=== PATIENT | male | born 1995 | race Caucasian/White ===

== ENCOUNTER 2018-03-19 11:42 | Emergency (ER) | payer BC ==
--- NOTE | 2018-03-19 12:33 | EDM.PDOC ---
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, working the next 2d left ankle Pain Score (Numeric/FACES): 7 - Related Data Allergies Allergy/AdvReac Type Severity Reaction Status Date / Time No Known Allergies Allergy Verified 03/19/18 12:08 Home Meds: Home Meds NK [No Known Home Meds] 03/19/18 [History] Past Medical History Gastrointestinal History: Reports: Other (See Below) Other Gastrointestinal History: hirschsprungs disease Musculoskeletal History: Reports: Amputation Other Musculoskeletal History: right foot toes from [employer] - Past Surgical History GI Surgical History: Reports: Colon, Colostomy Social & Family History - Tobacco Use Smoking Status *Q: Current Every Day Smoker Years of Tobacco use: 15 Packs/Tins Daily: 1 - Alcohol Use Days Per Week of Alcohol Use: 7 Number of Drinks Per Day: 6 Total Drinks Per Week: 42 - Recreational Drug Use Recreational Drug Use: No Review of Systems - Review of Systems Review Of Systems: See Below Constitutional: Reports: No Symptoms Eyes: Reports: No Symptoms Ears: Reports: No Symptoms Nose: Reports: No Symptoms Mouth/Throat: Reports: No Symptoms Respiratory: Reports: No Symptoms Cardiovascular: Reports: No Symptoms GI/Abdominal: Reports: No Symptoms Genitourinary: Reports: No Symptoms Musculoskeletal: Reports: Joint Pain Skin: Reports: No Symptoms Neurological: Reports: No Symptoms Psychiatric: Reports: No Symptoms ED EXAM, GENERAL - Physical Exam Exam: See Below Exam Limited By: No Limitations General Appearance: Alert, WD/WN, No Apparent Distress Extremities: Other (L ankle, slight swell med/lat/ant along joint line c/w twist rather than a fall, no ecchymosis, mild tender not localized, no bony tender) Course - Vital Signs Last Recorded V/S: Last Vital Signs Temp Pulse 90 03/19/18 11:45 Resp 18 03/19/18 11:45 BP 115/73 09/27/18 11:45 Pulse Ox 99 03/19/18 11:45 - Orders/Labs/Meds Orders: Active Orders 24 hr Category Date Time Status Ankle Min 3V Lt [CR] Stat Exams 03/19/18 11:57 Taken Departure - Departure Time of Disposition: 12:27 Disposition: Home, Self-Care 01 Condition: Good Clinical Impression: Grade 1 ankle sprain Qualifiers: Encounter type: initial encounter Laterality: left Qualified Code(s): S93.402A - Sprain of unspecified ligament of left ankle, initial encounter - Discharge Information *PRESCRIPTION DRUG MONITORING PROGRAM REVIEWED*: Not Applicable *COPY OF PRESCRIPTION DRUG MONITORING REPORT IN PATIENT HELENA: Not Applicable Instructions: Ankle Sprain With Phase I Rehab-SportsMed, How to Use a Stirrup Ankle Brace Referrals: Washington Cabezas MD [Primary Care Provider] - Additional Instructions: Use Ronen wrap and stirrup ankle brace when out of bed for the next 2 weeks. For pain and inflammation and swelling and healing, take ibuprofen 200 mg 3 tabs and acetaminophen 500 mg 2 tabs 4 times a day for 1 week, longer if needed. For pain and swelling, use ice for 10-15 minutes 4 times a day for 2 days. See your physician in 4-5 days. - My Orders Last 24 Hours: My Active Orders 03/19/18 11:57 Ankle Min 3V Lt [CR] Stat - Assessment/Plan Last 24 Hours: My Active Orders 03/19/18 11:57 Ankle Min 3V Lt [CR] Stat
--- NOTE | 2018-03-19 12:46 | CR ---
INDICATION: Injury, pain with weightbearing. LEFT ANKLE: Three views of the left ankle revealed mild soft tissue swelling overlying the lateral malleolus. The ankle mortise appears to be intact without evidence of a fracture, dislocation, or other significant bone or joint abnormality. MTDD
== END 2018-03-19 12:43 | disposition home or self-care (01) ==
LOC: FB.ED 11:42
DX: S93.402A Sprain of unspecified ligament of left ankle, initial encounter (principal); F17.210 Nicotine dependence, cigarettes, uncomplicated; X58.XXXA Exposure to other specified factors, initial encounter
CPT/HCPCS: 73610-LT; 99283

== ENCOUNTER 2018-08-01 02:02 | Emergency (ER) | payer SELFPAY ==
[2018-08-01] MEDS ORDERED: Magnesium Citrate Solution 296 ML Bottle PO ONE (02:27)
[2018-08-01] MEDS ORDERED: Bisacodyl 10 MG Supp RECTAL ONE (02:27)
--- NOTE | 2018-08-01 02:30 | EDM.PDOC ---
ED HPI GENERAL MEDICAL PROBLEM - General Chief Complaint: Gastrointestinal Problem Stated Complaint: STOMACH CRAMPS Time Seen by Provider: 08/01/18 02:05 Source of Information: Reports: Patient, Family History Limitations: Reports: No Limitations - History of Present Illness Onset Date: 07/18/18 Onset Time: 08:00 Duration: Week(s):, Getting Worse Location: Reports: Abdomen Quality: Reports: Dull, Pressure, Same as Previous Episode Severity: Moderate Improves with: Reports: Rest Worsens with: Reports: Movement Associated Symptoms: Reports: No Other Symptoms - Related Data Allergies Allergy/AdvReac Type Severity Reaction Status Date / Time ondansetron [From Zofran] Allergy Burning Verified 08/01/18 02:12 Home Meds: Home Meds NK [No Known Home Meds] 03/19/18 [History] Past Medical History - Past Health History Medical/Surgical History: Denies Medical/Surgical History Gastrointestinal History: Reports: Other (See Below) Other Gastrointestinal History: hirschsprungs disease Musculoskeletal History: Reports: Amputation, Fracture Other Musculoskeletal History: 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, 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 Neurological History: Reports: Concussion, Migraines, Seizure Psychiatric History: Reports: Other (See Below) Other Psychiatric History: multiple personality disorder - Past Surgical History GI Surgical History: Reports: Colon, Colostomy Other GI Surgeries/Procedures: had temp colostomy & has had it reversed Musculoskeletal Surgical History: Reports: Other (See Below) Other Musculoskeletal Surgeries/Procedures:: R hand Social & Family History - Family History Family Medical History: Noncontributory - Tobacco Use Smoking Status *Q: Current Every Day Smoker Years of Tobacco use: 4 Packs/Tins Daily: 0.5 Used Tobacco, but Quit: No Second Hand Smoke Exposure: Yes - Caffeine Use Caffeine Use: Reports: Energy Drinks - Alcohol Use Days Per Week of Alcohol Use: 4 Number of Drinks Per Day: 2 Total Drinks Per Week: 8 - Recreational Drug Use Recreational Drug Use: No ED ROS GENERAL - Review of Systems Review Of Systems: See Below Constitutional: Reports: No Symptoms HEENT: Reports: No Symptoms Respiratory: Reports: No Symptoms Cardiovascular: Reports: No Symptoms Endocrine: Reports: No Symptoms GI/Abdominal: Reports: Abdominal Pain : Reports: No Symptoms Musculoskeletal: Reports: No Symptoms Skin: Reports: No Symptoms Neurological: Reports: No Symptoms Psychiatric: Reports: No Symptoms Hematologic/Lymphatic: Reports: No Symptoms Immunologic: Reports: No Symptoms ED EXAM, GI/ABD - Physical Exam Exam: See Below Exam Limited By: No Limitations General Appearance: Alert, WD/WN, Mild Distress Eyes: Bilateral: Normal Appearance Ears: Normal External Exam Nose: Normal Inspection, Normal Mucosa, No Blood Throat/Mouth: Normal Inspection, Normal Lips, Normal Voice, No Airway Compromise Head: Atraumatic, Normocephalic Neck: Normal Inspection, Supple, Non-Tender, Full Range of Motion Respiratory/Chest: No Respiratory Distress, Lungs Clear, Normal Breath Sounds, No Accessory Muscle Use, Chest Non-Tender Cardiovascular: Normal Peripheral Pulses, Regular Rate, Rhythm, No Edema, No Gallop, No Murmur, No Rub GI/Abdominal Exam: Pelvis Stable, Distended, Tender, Abnormal Bowel Sounds, Other (H/O Hirschsprung disease) (Male) Exam: No Hernia Rectal (Males) Exam: Deferred Back Exam: Normal Inspection, Full Range of Motion Extremities: Normal Inspection, Normal Range of Motion, Non-Tender, No Pedal Edema Neurological: Alert, Oriented, CN II-XII Intact, Normal Cognition, Normal Gait Psychiatric: Normal Affect, Normal Mood Skin Exam: Warm, Dry, Intact, Normal Color, No Rash Lymphatic: No Adenopathy Course - Vital Signs Text/Narrative:: Impression: H/O Hirschsprung disease, Constipation Last Recorded V/S: Last Vital Signs Temp 36.3 C 08/01/18 02:05 Pulse 105 H 08/01/18 02:05 Resp 18 08/01/18 02:05 BP 126/97 H 08/01/18 02:05 Pulse Ox 100 08/01/18 02:05 - Orders/Labs/Meds Orders: Active Orders 24 hr Category Date Time Status Abdomen 2V AP Flat Upright [CR] Stat Exams 08/01/18 02:23 Taken Labs: Laboratory Tests 08/01/18 08/01/18 08/01/18 Range/Units 02:40 02:40 02:59 WBC 10.2 (4.5-12.0) X10-3/uL RBC 4.83 (4.30-5.75) x10(6)uL Hgb 15.2 (11.5-15.5) g/dL Hct 45.8 (30.0-51.3) % MCV 95.0 (80-96) fL MCH 31.5 (27.7-33.6) pg MCHC 33.1 (32.2-35.4) g/dL RDW 11.8 (11.5-15.5) % Plt Count 325 (125-369) X10(3)uL MPV 8.4 (7.4-10.4) fL Neut % (Auto) 65.8 (46-82) % Lymph % (Auto) 24.4 (13-37) % Smyth % (Auto) 7.7 (4-12) % Eos % (Auto) 2 (1.0-5.0) % Baso % (Auto) 1 (0-2) % Neut # (Auto) 6.6 (1.6-8.3) # Lymph # (Auto) 2.5 (0.6-5.0) # Smyth # (Auto) 0.8 (0.0-1.3) # Eos # (Auto) 0.2 (0.0-0.8) # Baso # (Auto) 0.1 (0.0-0.2) # Sodium 139 (135-145) mmol/L Potassium 4.6 D (3.5-5.3) mmol/L Chloride 101 (100-110) mmol/L Carbon Dioxide 31 (21-32) mmol/L BUN 13 (7-18) mg/dL Creatinine 0.9 (0.70-1.30) mg/dL Est Cr Clr Drug Dosing TNP Estimated GFR (MDRD) > 60 (>60) BUN/Creatinine Ratio 14.4 (9-20) Glucose 95 (80-116) mg/dL Calcium 9.3 (8.6-10.2) mg/dL Urine Color Yellow (YELLOW) Urine Appearance Slightly cloudy (CLEAR) Urine pH 7.0 H (5.0-6.5) Ur Specific [place] 1.015 (1.010-1.025) Urine Protein Negative (NEGATIVE) mg/dL Urine Glucose (UA) Normal (NEGATIVE) mg/dL Urine Ketones Negative (NEGATIVE) mg/dL Urine Occult Blood Negative (NEGATIVE) Urine Nitrite Negative (NEGATIVE) Urine Bilirubin Negative (NEGATIVE) Urine Urobilinogen 1 H (NEGATIVE) mg/dL Ur Leukocyte Esterase Negative (NEGATIVE) Urine RBC 0-5 (0) Urine WBC 0-5 (0) Ur Squamous Epith Cells Occasional (NS,R,O) Amorphous Sediment Many Urine Bacteria Rare H (NS) Meds: Medications Discontinued Medications Generic Name Dose Route Start Last Admin Trade Name Charlie PRN Reason Stop Dose Admin Bisacodyl 10 mg 08/01/18 02:27 08/01/18 02:32 Dulcolax RECTAL 08/01/18 02:28 10 mg ONETIME ONE Administration Magnesium Citrate 296 ml 08/01/18 02:27 08/01/18 02:32 Citrate Of Magnesia PO 08/01/18 02:28 296 ml ONETIME ONE Administration Departure - Departure Time of Disposition: 03:32 Disposition: Home, Self-Care 01 Condition: Good Clinical Impression: Hirschsprung disease of rectosigmoid region Constipation Qualifiers: Constipation type: other constipation type Qualified Code(s): K59.09 - Other constipation - Discharge Information Referrals: PCP,None [Primary Care Provider] - Forms: ED Department Discharge, ED Return to Work/School Form Additional Instructions: Please f/u with your doctor or go to the walk in clinic during daytime for follow up, please f/u with a surgeon regarding you Hirschsprung's disease. please come back if your symptoms getr worse acutely - My Orders Last 24 Hours: My Active Orders 08/01/18 02:23 Abdomen 2V AP Flat Upright [CR] Stat - Assessment/Plan Last 24 Hours: My Active Orders 08/01/18 02:23 Abdomen 2V AP Flat Upright [CR] Stat
--- NOTE | 2018-08-03 14:46 | CR ---
INDICATION: No BM in 2 weeks. ABDOMEN: Four images of the abdomen were obtained in supine and upright projections, 08/01/18 - no comparisons. There is massive distention with stool of what appears to be a prominent loop of sigmoid colon rising out of the pelvis. Relatively minimal gas is noted in the rectum. The possibility of a partially obstructive process at the distal sigmoid or rectosigmoid cannot be excluded with this appearance. Depending upon clinical correlation, colonoscopy may be warranted to further evaluate the rectosigmoid area. Otherwise, no organomegaly, mass lesions, or free fluid collections were suggested. No pathologic calcification was noted. A mild degree of dextroconvex scoliosis is noted at the thoracolumbar spine. IMPRESSION: Massive distention of what appears to be the sigmoid colon, possibly representing a loop of sigmoid that is prominent and could predispose to sigmoid volvulus. No definite sigmoid volvulus is seen at this time, however. There is, however, a relative obstructive process, possibly functional , lying at the level of the rectosigmoid colon, since the rectum appears to be normal in caliber. Colonoscopy is recommended for further evaluation. MTDD
== END 2018-08-01 03:45 | disposition home or self-care (01) ==
LOC: FB.ED 02:02
DX: Q43.1 Hirschsprung's disease (principal); F17.210 Nicotine dependence, cigarettes, uncomplicated; Z88.8 Allergy status to other drugs, medicaments and biological substances
CPT/HCPCS: 36415; 74019; 80048; 81001; 85025; 99283; A9270

== ENCOUNTER 2018-08-03 19:55 | Emergency (ER) | payer SELFPAY ==
--- NOTE | 2018-08-03 20:12 | EDM.PDOC ---
ED HPI GENERAL MEDICAL PROBLEM - General Stated Complaint: ABD PAIN Time Seen by Provider: 08/03/18 19:55 Source of Information: Reports: Patient, Family (brother) History Limitations: Reports: No Limitations - History of Present Illness INITIAL COMMENTS - FREE TEXT/NARRATIVE: 22 y.o.w.m with a H/O Hirschsprung disease. He came to this ED at 2 am yesterday c/o abd. pain, did not have BM for 2 weeks, no N/V. Laxatives would not work not work and he needs a work excuse in order to see his PMD during the daytime. Pe showed mild distension of his abd. Abd flat and upright showed stool in his abdomen but the GI tract was not blocked, pt was passing Air. Today , the pt cane to the ED for the same isseu. He did not see his PMD because he wanted to sleep in and missed the appointment fro hie PMD yesterday. He requested a work excuse for 1 week. No trauma. the MD citrate and Dulcolax would not have worked. No N/V no trauma. Pt stated he eats regular food every day, 3 meals a day. No other acute medical issues. BP 115/89 Pulse 102 RR 20 Pulse ox 100% on RA Temp 36.6 Onset: Unknown/Unsure Duration: Chronic, Colic, Intermittent Location: Reports: Abdomen Quality: Reports: Dull, Same as Previous Episode Severity: Moderate Improves with: Reports: Rest Worsens with: Reports: Movement Context: Reports: Other (H/O Hirschsprung's disease ) Associated Symptoms: Reports: No Other Symptoms, Other (no nausea, no vomiting) abdomen Pain Score (Numeric/FACES): 4 - Related Data Allergies Allergy/AdvReac Type Severity Reaction Status Date / Time ondansetron [From Zofran] Allergy Burning Verified 08/03/18 20:27 Home Meds: Home Meds NK [No Known Home Meds] 03/19/18 [History] Past Medical History - Past Health History Medical/Surgical History: Denies Medical/Surgical History Gastrointestinal History: Reports: Other (See Below) Other Gastrointestinal History: hirschsprungs disease Musculoskeletal History: Reports: Amputation, Fracture Other Musculoskeletal History: 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, 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 Neurological History: Reports: Concussion, Migraines, Seizure Psychiatric History: Reports: Other (See Below) Other Psychiatric History: multiple personality disorder - Past Surgical History GI Surgical History: Reports: Colon, Colostomy Other GI Surgeries/Procedures: had temp colostomy & has had it reversed Musculoskeletal Surgical History: Reports: Other (See Below) Other Musculoskeletal Surgeries/Procedures:: R hand Social & Family History - Family History Family Medical History: Noncontributory - Caffeine Use Caffeine Use: Reports: Energy Drinks ED ROS GENERAL - Review of Systems Review Of Systems: See Below Constitutional: Reports: No Symptoms HEENT: Reports: No Symptoms Respiratory: Reports: No Symptoms Cardiovascular: Reports: No Symptoms Endocrine: Reports: No Symptoms GI/Abdominal: Reports: Abdominal Pain (discomfort), Constipation : Reports: No Symptoms Musculoskeletal: Reports: No Symptoms Skin: Reports: No Symptoms Neurological: Reports: No Symptoms Psychiatric: Reports: No Symptoms Hematologic/Lymphatic: Reports: No Symptoms Immunologic: Reports: No Symptoms ED EXAM, GI/ABD - Physical Exam Exam: See Below Exam Limited By: No Limitations General Appearance: Alert, WD/WN, Mild Distress Eyes: Bilateral: Normal Appearance Ears: Normal External Exam Nose: Normal Inspection Throat/Mouth: Normal Lips, Normal Voice, No Airway Compromise Head: Atraumatic, Normocephalic Neck: Normal Inspection, Supple, Non-Tender Respiratory/Chest: No Respiratory Distress Cardiovascular: Normal Peripheral Pulses GI/Abdominal Exam: Non-Tender, Pelvis Stable, Distended (mild) (Male) Exam: Deferred Rectal (Males) Exam: Deferred Back Exam: Normal Inspection, Full Range of Motion Extremities: Normal Inspection, Normal Range of Motion, Non-Tender, No Pedal Edema, Normal Capillary Refill Neurological: Alert, Oriented, CN II-XII Intact, Normal Cognition Psychiatric: Normal Affect, Normal Mood Skin Exam: Warm, Dry, Intact, Normal Color, No Rash Lymphatic: No Adenopathy Course - Vital Signs Text/Narrative:: 22 y.o.w.m with a H/O Hirschsprung disease. He came to this ED at 2 am yesterday c/o abd. pain, did not have BM for 2 weeks, no N/V. Laxatives would not work not work and he needs a work excuse in order to see his PMD during the daytime. Pe showed mild distension of his abd. Abd flat and upright showed stool in his abdomen but the GI tract was not blocked, pt was passing Air. Today , the pt cane to the ED for the same isseu. He did not see his PMD because he wanted to sleep in and missed the appointment fro vte PMD yesterday. He requested a work excuse for 1 week. No trauma. the MD citrate and Dulcolax would not have worked. No N/V no trauma. Pt stated he eats regular food every day, 3 meals a day. No other acute medical issues. BP 115/89 Pulse 102 RR 20 Pulse ox 100% on RA Temp 36.6 PE: WNWD W M in no acite discomfort Imaging: Abd flat/upright: Stool in Colon, passing air well. Official report is pending Impression: Hirschsprungs disease, Constipation, noncompliance. Tx: take home Mg Citrate, Dulcolax Rexam; Pt was in no discomfort, requesting a sick leave he was given a sicl leave for tomorrow morning in order to see his PMD. Plan: D/C with instructions Last Recorded V/S: Last Vital Signs Temp 36.6 C 08/03/18 19:55 Pulse 101 H 08/03/18 19:55 Resp 20 08/03/18 19:55 BP 115/89 08/03/18 19:55 Pulse Ox 100 08/03/18 19:55 - Orders/Labs/Meds Orders: Active Orders 24 hr Category Date Time Status Abdomen 2V AP Flat Upright [CR] Stat Exams 08/03/18 20:12 Taken Meds: Medications Discontinued Medications Generic Name Dose Route Start Last Admin Trade Name Charlie PRN Reason Stop Dose Admin Bisacodyl 10 mg 08/03/18 21:27 Dulcolax RECTAL 08/03/18 21:28 ONETIME ONE Magnesium Citrate 296 ml 08/03/18 21:27 Citrate Of Magnesia PO 08/03/18 21:28 ONETIME ONE Departure - Departure Time of Disposition: 21:28 Disposition: Home, Self-Care 01 Condition: Good Clinical Impression: Hirschsprung's disease, Noncompliance Constipation Qualifiers: Constipation type: other constipation type Qualified Code(s): K59.09 - Other constipation - Discharge Information Referrals: PCP,None [Primary Care Provider] - Forms: ED Return to Work/School Form Additional Instructions: Please reapply Dulcolax and take Mag citrate, please f/u with your PMD in am for follow up. Please come back if your symptoms get worse acutely. - My Orders Last 24 Hours: My Active Orders 08/03/18 20:12 Abdomen 2V AP Flat Upright [CR] Stat - Assessment/Plan Last 24 Hours: My Active Orders 08/03/18 20:12 Abdomen 2V AP Flat Upright [CR] Stat
[2018-08-03] MEDS ORDERED: Bisacodyl 10 MG Supp RECTAL ONE (21:27)
[2018-08-03] MEDS ORDERED: Magnesium Citrate Solution 296 ML Bottle PO ONE (21:27)
--- NOTE | 2018-08-04 11:38 | CR ---
INDICATION: Hirschsprungs disease. ABDOMEN: Four images of the abdomen in supine and upright projections revealed no evidence of free air with marked distention of what appears to be the sigmoid colon and relatively normal gas pattern in the area of the rectum. This suggests an obstructive process at the level of the rectosigmoid. This could represent a process such as Hirschsprungs but should be correlated clinically. No other organomegaly or mass lesions were suggested. No pathologic calcifications were seen. IMPRESSION: Marked distention with stool of the sigmoid and at least a portion of the rectosigmoid colon, compatible with a partially obstructive process in that area - rectosigmoid. Findings are essentially unchanged from 08/01/18 examination. [facility]
== END 2018-08-03 21:45 | disposition home or self-care (01) ==
LOC: FB.ED 19:55
DX: K59.00 Constipation, unspecified (principal); Q43.1 Hirschsprung's disease; Z91.19 Patient's noncompliance with other medical treatment and regimen
CPT/HCPCS: 74019; 99284; A9270

== ENCOUNTER 2019-04-19 21:57 | Emergency (ER) | payer MEDICAID ==
[2019-04-19] MEDS ORDERED: Azithromycin 250 MG Tab PO ONE (21:58)
--- NOTE | 2019-04-19 23:29 | EDM.PDOC ---
ED HPI GENERAL MEDICAL PROBLEM - General Chief Complaint: General Stated Complaint: SORE THROAT AND CHEST HURTS Time Seen by Provider: 04/19/19 23:00 Source of Information: Reports: Patient History Limitations: Reports: No Limitations - History of Present Illness INITIAL COMMENTS - FREE TEXT/NARRATIVE: pt c/o productive cough and ST X 2 days, indicate chest congestion and chest pain while coughing, pt report Hx of smoking, denies fever, chills or any other associated sx or concerns. 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 Neurological History: Reports: Concussion, Migraines, Seizure Psychiatric History: Reports: Other (See Below) Other Psychiatric History: multiple personality disorder - Past Surgical History GI Surgical History: Reports: Colon, Colostomy Other GI Surgeries/Procedures: had temp colostomy & has had it reversed Musculoskeletal Surgical History: Reports: Other (See Below) Other Musculoskeletal Surgeries/Procedures:: R hand Social & Family History - Family History Family Medical History: Noncontributory - Caffeine Use Caffeine Use: Reports: Energy Drinks ED ROS GENERAL - Review of Systems Review Of Systems: See Below Constitutional: Reports: No Symptoms HEENT: Reports: No Symptoms Respiratory: Reports: Cough. Denies: Shortness of Breath, Wheezing Cardiovascular: Reports: No Symptoms. Denies: Dyspnea on Exertion, Palpitations , Syncope GI/Abdominal: Reports: No Symptoms Musculoskeletal: Reports: No Symptoms Skin: Reports: No Symptoms ED EXAM, GENERAL - Physical Exam Exam: See Below Exam Limited By: No Limitations General Appearance: Alert Ears: Normal Canal, Normal TMs Nose: Normal Inspection Throat/Mouth: Normal Inspection, Normal Oropharynx Head: Atraumatic Neck: Normal Inspection, Supple Respiratory/Chest: No Respiratory Distress, Lungs Clear Cardiovascular: Normal Peripheral Pulses, Regular Rate, Rhythm GI/Abdominal: Normal Bowel Sounds, Soft Back Exam: Normal Inspection Extremities: Normal Inspection Course - Vital Signs Text/Narrative:: pt has acute bronchitis , zpack and supportive mng were prescribed. strep test is neg. - Orders/Labs/Meds Orders: Active Orders 24 hr Category Date Time Status CULTURE STREP A CONFIRMATION [RM] Stat Lab 04/19/19 22:25 Results STREP SCRN A RAPID W CULT CONF [RM] Stat Lab 04/19/19 22:25 Results Departure - Departure Time of Disposition: 23:29 Disposition: Home, Self-Care 01 Clinical Impression: Acute bronchitis - Discharge Information Referrals: PCP,None [Primary Care Provider] - - My Orders Last 24 Hours: My Active Orders 04/19/19 22:25 CULTURE STREP A CONFIRMATION [RM] Stat STREP SCRN A RAPID W CULT CONF [RM] Stat - Assessment/Plan Last 24 Hours: My Active Orders 04/19/19 22:25 CULTURE STREP A CONFIRMATION [RM] Stat STREP SCRN A RAPID W CULT CONF [RM] Stat
[2019-04-20] MEDS ORDERED: Azithromycin 250 MG Tab PO SCH (09:00)
== END 2019-04-19 23:45 | disposition home or self-care (01) ==
LOC: FB.ED 21:57
DX: J20.9 Acute bronchitis, unspecified (principal); F17.200 Nicotine dependence, unspecified, uncomplicated; Z88.8 Allergy status to other drugs, medicaments and biological substances
CPT/HCPCS: 87081; 87880-QW; 99282; A9270-GY

== ENCOUNTER 2019-05-04 12:23 | Emergency (ER) | payer MEDICAID, OTHER ==
[2019-05-04] MEDS ORDERED: Ketorolac 60 MG/2 ML SDV IM ONE (12:52)
--- NOTE | 2019-05-04 12:56 | EDM.PDOC ---
ED HPI GENERAL MEDICAL PROBLEM - General Chief Complaint: Back Pain or Injury Stated Complaint: RIGHT SIDE OF BODY HURTS Time Seen by Provider: 05/04/19 12:50 Source of Information: Reports: Patient History Limitations: Reports: No Limitations - History of Present Illness INITIAL COMMENTS - FREE TEXT/NARRATIVE: Anatoly was descending a flight of stairs this am when he slipped and fell onto upper back and ribs, rolling to a stop at the bottom of the stairs. There was no LOC. There is residual pain in the back and chest wall R>L. He has voided and noted no discoloration. He is no SOB. He has taken no analgesics. - Related Data Allergies Allergy/AdvReac Type Severity Reaction Status Date / Time ondansetron [From Zofran] Allergy Hot Flash Verified 04/21/19 05:23 lavendar Allergy Swelling Uncoded 04/21/19 05:21 Tide Detergent Allergy Rash Uncoded 04/21/19 05:22 Home Meds: Home Meds NK [No Known Home Meds] 03/19/18 [History] Past Medical History - Past Health History Medical/Surgical History: Denies Medical/Surgical History Gastrointestinal History: Reports: Other (See Below) Other Gastrointestinal History: hirschsprungs disease Musculoskeletal History: Reports: Amputation, Fracture Other Musculoskeletal History: right foot toes from nikita rothman R thomas Neurological History: Reports: Concussion, Migraines, Seizure Other Neuro History: States several concussions. States he has a headache all the time, since 2016. Psychiatric History: Reports: Other (See Below) Other Psychiatric History: multiple personality disorder - Past Surgical History GI Surgical History: Reports: Colon, Colostomy Other GI Surgeries/Procedures: had temp colostomy & has had it reversed Musculoskeletal Surgical History: Reports: Other (See Below) Other Musculoskeletal Surgeries/Procedures:: R hand Social & Family History - Family History Family Medical History: Noncontributory - Caffeine Use Caffeine Use: Reports: Energy Drinks ED ROS GENERAL - Review of Systems Review Of Systems: Comprehensive ROS is negative, except as noted in HPI. ED EXAM, UPPER BACK/NECK PAIN - Physical Exam Exam: See Below Exam Limited By: Physical Impairment General Appearance: Alert, WD/WN, Moderate Distress Eye Exam: Bilateral Eye: EOMI, Normal Inspection, PERRL Ears Exam: Normal External Exam, Normal TMs Nose Exam: Normal Inspection Throat/Mouth Exam: Normal Inspection, Normal Lips, Normal Teeth, Normal Gums, Normal Oropharynx, Normal Voice, No Airway Compromise Head Exam: Atraumatic, Normocephalic Neck Exam: Non-Tender, Normal Alignment, Normal Inspection, Painful Range of Motion (R lower lateral neck to lateral and rotary maneuver) Cardiovascular/Respiratory: Regular Rate, Rhythm, Normal Peripheral Pulses, Normal Breath Sounds GI/Abdominal: Normal Bowel Sounds, Soft, Non-Tender, No Organomegaly, No Distention, No Mass (Male) Exam: Normal Inspection Rectal (Males) Exam: Deferred Back Exam: Paraspinal Tenderness, Vertebral Tenderness Extremities: Normal Inspection, Limited Range of Motion (R shoulder to maneuver , pulling onto R shoulder girdle) 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 All x rays of chest and rib detail were negative. Last Recorded V/S: Last Vital Signs Temp 36.6 C 05/04/19 12:40 Pulse 82 05/04/19 12:40 Resp 14 05/04/19 12:40 BP 117/80 05/04/19 12:40 Pulse Ox 98 05/04/19 12:40 - Orders/Labs/Meds Orders: Active Orders 24 hr Category Date Time Status Ribs 3V w Chest Bi [CR] Stat Exams 05/04/19 12:52 Taken URINALYSIS W/MICROSCOPIC [UA W/MICROSCOPIC] [URIN] Stat Lab 05/04/19 14:11 Received Meds: Medications Discontinued Medications Generic Name Dose Route Start Last Admin Trade Name Freq PRN Reason Stop Dose Admin Ketorolac Tromethamine 60 mg 05/04/19 12:52 05/04/19 13:08 Toradol IM 05/04/19 12:53 60 mg ONETIME ONE Administration Departure - Departure Time of Disposition: 14:30 Disposition: Home, Self-Care 01 Condition: Fair Clinical Impression: Multiple contusions of trunk Qualifiers: Encounter type: initial encounter Qualified Code(s): S20.20XA - Contusion of thorax, unspecified, initial encounter - Discharge Information *PRESCRIPTION DRUG MONITORING PROGRAM REVIEWED*: Not Applicable *COPY OF PRESCRIPTION DRUG MONITORING REPORT IN PATIENT HELENA: Not Applicable Referrals: PCP,None [Primary Care Provider] - Forms: ED Department Discharge - Problem List & Annotations (1) Multiple contusions of trunk SNOMED Code(s): 3917522 Code(s): S20.20XA - CONTUSION OF THORAX, UNSPECIFIED, INITIAL ENCOUNTER Status: Acute Current Visit: Yes Annotation/Comment:: I dispensed Tramadol 50 mg qid prn for breakthrought pain, and NSAIDs of choice for pain managment. He will receive a couple of days off work and rest at home. Qualifiers: Encounter type: initial encounter Qualified Code(s): S20.20XA - Contusion of thorax, unspecified, initial encounter - Problem List Review Problem List Initiated/Reviewed/Updated: Yes - My Orders Last 24 Hours: My Active Orders 05/04/19 12:52 Ribs 3V w Chest Bi [CR] Stat 05/04/19 14:11 URINALYSIS W/MICROSCOPIC [UA W/MICROSCOPIC] [URIN] Stat - Assessment/Plan Last 24 Hours: My Active Orders 05/04/19 12:52 Ribs 3V w Chest Bi [CR] Stat 05/04/19 14:11 URINALYSIS W/MICROSCOPIC [UA W/MICROSCOPIC] [URIN] Stat Plan: Follow up with PCP if needed.
--- NOTE | 2019-05-05 09:11 | CR ---
INDICATION: Fell down stairs this a.m., right greater than left thoracic spine pain in ribs, pain at the bottom of shoulder blades. BILATERAL RIBS WITH CHEST: PA view of the chest with four views of the ribs bilaterally revealed the heart, mediastinum, and bony thorax to be unremarkable without evidence of a fracture or other definite bony abnormality. An active infiltrate, effusion, contusion, or pneumothorax was not identified. No free air is noted under the hemidiaphragm leaves. IMPRESSION: No active disease - no fractures visualized. MTDD
== END 2019-05-04 14:56 | disposition home or self-care (01) ==
LOC: FB.ED 12:23
DX: S20.219A Contusion of unspecified front wall of thorax, initial encounter (principal); Z88.5 Allergy status to narcotic agent; Z91.048 Other nonmedicinal substance allergy status; W01.0XXA Fall on same level from slipping, tripping and stumbling without subsequent striking against object, initial encounter
CPT/HCPCS: 71111; 81001; 96372; 99283; 99285; J1885